=== PATIENT | female | born 1995 | race Caucasian/White ===

== ENCOUNTER → 2019-03-11 11:15 | Outpatient (CLI) | payer OTHER, SELFPAY ==
--- NOTE | 2019-03-11 | DI.US.S_ITS ---
PROCEDURE: US PELVIC COMPLETE INDICATIONS: PT SPOTTING TECHNIQUE: Real-time scanning was performed of the pelvic organs, with image documentation. Additional endovaginal scanning was necessary due to incomplete visualization of the adnexal and endometrial structures by transabdominal scanning. COMPARISON: None. FINDINGS: Transabdominal scanning: Limited scanning through the kidneys shows no hydronephrosis. No pathologic free abdominal or pelvic fluid. Endovaginal scanning: Uterus: Uterus is normal in size at 3.4 x 4.9 x 6.8 cm, anteverted. The endometrium measures 4.2 mm in combined thickness. There is a suspected isoechoic uterine fibroid measuring 2.2 x 1.5 cm at the anterior myometrium adjacent to the fundal portion of endometrial canal. Ovaries: The right ovary measures 1.6 x 1.7 x 2.9 cm and the left measures 1.5 x 1.2 x 2.9 cm. IMPRESSION: No endometrial mass, normal appearing ovaries. Suspect uterine fibroid at the anterior fundal portion of the myometrium, isoechoic, measuring up to 2.2 cm. Dictated by: Sim Shore M.D. on 03/11/2019 at 12:38 Approved by: Sim Shore M.D. on 03/11/2019 at 12:41
== END ==
PROVIDERS: PCP Nurse Practitioner Family; Visit Provider Nurse Practitioner Family
DX: N92.6 Irregular menstruation, unspecified (principal)
CPT/HCPCS: 76830; 76856

== ENCOUNTER 2019-07-29 17:44 | Emergency (ER) | payer OTHER, SELFPAY ==
[2019-07-29 17:49] VITALS: BP 152/96; PULSE 99; RESP 18; TEMP 36.9; O2SAT 99
--- NOTE | 2019-07-29 18:29 | DI.CT.S_ITS ---
PROCEDURE: CT KIDNEY URETER BLADDER (KUB) INDICATIONS: right flank pain TECHNIQUE: Noncontrast 5 mm thick sections acquired from the diaphragms to the symphysis. 5 mm thick coronal and sagittal reformats were then performed. For radiation dose reduction, the following was used: automated exposure control, adjustment of mA and/or kV according to patient size. COMPARISON: None. FINDINGS: Image quality: Excellent. Lung bases: Lung bases are clear. Heart size is normal. Urinary system: Both kidneys are normal in size. Punctate nonobstructing right upper pole intrarenal calcification. No left intrarenal calculi.. No hydronephrosis or perinephric fat stranding. Both ureters appear non-dilated throughout their expected courses. Bladder wall thickness is normal; no calcified bladder stones. Other solid organs: Liver is normal in size. Gallbladder is decompressed. Pancreas is normal in contours. Spleen is normal in size. No adrenal nodules. Peritoneum and bowel: Mildly increased quantity of proximal colonic and transverse colonic stool. Unenhanced bowel loops demonstrate normal wall thickness and caliber. No free fluid or air. Portions of an air-filled appendix are visible. Nodes and vessels: No retroperitoneal or mesenteric adenopathy by size criteria. Aorta and inferior vena cava are normal in caliber. Abdominal wall: No ventral hernias. Pelvis: No free pelvic fluid. No inguinal hernias or adenopathy. Bones: No suspicious bony lesions. No vertebral body compression fractures. IMPRESSION: 1. No CT evidence of obstructive uropathy. 2. Punctate, nonobstructing right upper pole intrarenal calcification, uncertain clinical significance of this small caliber. 3. Mildly increased quantity of retained stool. Dictated by: Pam Archer M.D. on 07/29/2019 at 20:23 Approved by: Pam Archer M.D. on 07/29/2019 at 20:30
--- NOTE | 2019-07-29 18:31 | ED.BACK ---
HPI - Back Pain/Injury General Chief Complaint: Back Pain/Injury Stated Complaint: BACK AND SIDE PAIN Time Seen by Provider: 07/29/19 18:18 Source: patient and old records reviewed Mode of arrival: Ambulatory Limitations: no limitations History of Present Illness HPI Narrative: Patient is a 23 year old female who presents with 3 days of right flank pain. She was diagnosed with a kidney infection on 07/27/19 by PCP and placed on Bactrium. She states she denies any dysuria, injury, fever, nausea or vomiting. She states pain is worsening, now spreading to the left flank and sometimes around to the stomach, but not persistent abdominal pain. She last took ibuprofen yesterday 400mg but says it doesn't last long and pain is worse after she takes it. Related Data Home Medications Medication Instructions Recorded Confirmed levonorgestrel 0.15 mg-ethinyl 1 tab PO DAILY 03/25/19 03/25/19 estradiol 30 mcg tablets,3 mos pack(91) Allergies Allergy/AdvReac Type Severity Reaction Status Date / Time clindamycin Allergy Severe hives Verified 07/29/19 17:54 Penicillins Allergy Hives Verified 07/29/19 17:54 Review of Systems Review of Systems ROS Unobtainable: All systems reviewed & are unremarkable except as noted in HPI and below Constitutional Constitutional: Denies chills, Denies fever(s), Denies lethargy and Denies weakness Eyes Eyes: Denies change in vision, Denies eye discharge, Denies irritation and Denies loss of vision Cardiovascular Cardiovascular: Denies chest pain, Denies irregular heart rhythm, Denies lightheadedness, Denies palpitations, Denies dyspnea, Denies dyspnea on exertion and Denies orthopnea Respiratory Respiratory: Denies cough, Denies dyspnea, Denies dyspnea on exertion and Denies wheezing Gastrointestinal Gastrointestinal: Reports as per HPI, Reports abdominal pain (off and on), Denies diarrhea, Denies nausea and Denies vomiting Genitourinary Genitourinary: Reports as per HPI and Reports flank pain Musculoskeletal Musculoskeletal: Denies back pain, Denies muscle weakness, Denies numbness and Denies tingling Integumentary/Breasts Skin/Breast: Denies pruritus, Denies erythema, Denies rash and Denies wounds Neurologic Neurologic: Denies loss of vision, Denies numbness, Denies tingling and Denies weakness Endocrine Endocrine: Denies palpitations Allergic/Immunologic Allergic/Immunologic: Denies wheezing Patient History Medical History Patient denies medical problems (Acute) Social History Smoking Status: Never smoker alcohol intake frequency: a few times a week Alcohol type: hard liquor Substance Use Type: marijuana Exam Initial Vital Signs Initial Vital Signs: Vital Signs Temperature 98.5 F 07/29/19 17:49 Pulse Rate 99 H 07/29/19 17:49 Respiratory Rate 18 07/29/19 17:49 Blood Pressure 152/96 H 07/29/19 17:49 Pulse Oximetry 99 07/29/19 17:49 Const General: cooperative and well developed Nutritional Appearance: well nourished Orientation: alert, awake, oriented x3 and not confused GI Inspection: normal to inspection Palpation: soft, No firm, No guarding and No tender General: CVA tenderness (right) Skin General: no rashes or lesions noted, No jaundice and No petechiae Neuro General: alert, oriented x3, gait normal and no focal motor deficits Speech: speech normal Course Orders Ordered: ED Orders 07/29/19 18:29 CT kidney ureter bladder (KUB) Stat 07/29/19 18:55 Complete Blood Count AUTO DIFF Stat Comprehensive Metabolic Panel Stat Lipase Stat 07/29/19 18:56 Urine Culture Stat Urine Microscopic Stat Discontinued Medications Ketorolac Tromethamine (Toradol) 30 mg IV NOW ONE Stop: 07/29/19 18:30 Last Admin: 07/29/19 19:06 Dose: 30 mg Documented by: MEISENB Trimethoprim/Sulfamethoxazole (Bactrim Ds Prepack) 1 bottle MISC SEEINSTR ONE Stop: 07/29/19 20:45 Last Admin: 07/29/19 20:49 Dose: 1 bottle Documented by: [email or web address] Vital Signs Vital signs: Vital Signs - 8 hr 07/29/19 19:48 Pulse Rate 79 Respiratory Rate 16 Blood Pressure [Right Arm] 121/85 Pulse Oximetry 99 MDM - Back Pain/Injury Lab Data Attestation: I reviewed the patient's lab results. Result diagrams: 07/29/19 18:55 07/29/19 18:55 Labs: Lab Results 07/29/19 07/29/19 07/29/19 Range/Units 18:55 18:55 18:56 WBC 13.4 H (4.5-11.0) X10^3/uL RBC 4.76 (4.0-5.2) X10^6/uL Hgb 14.1 (12.0-16.0) g/dL Hct 41.5 (36-46) % MCV 87.4 (80-100) fL MCH 29.7 (26-34) PG MCHC 34.0 (30-36) % RDW 12.7 (11.6-14.8) % Plt Count 417 H (150-400) X10^3/uL Neut % (Auto) 66.7 (50-75) % Lymph % (Auto) 21.9 L (25-40) % [place] % (Auto) 6.4 (3-14) % Eos % (Auto) 4.7 H (2-4) % Baso % (Auto) 0.3 (0-2) % Neut # (Auto) 9000 H (8395-4517) /uL Lymph # (Auto) 2900 (7449-7286) /uL [place] # (Auto) 900 (0-900) /uL Eos # (Auto) 600 H (0-450) /uL Baso # (Auto) 0 (0-100) /uL Sodium 139 (137-145) mmol/L Potassium 3.9 (3.4-5.1) mmol/L Chloride 101 (98-107) mmol/L Carbon Dioxide 25 (22-32) mmol/L BUN 9 (7-17) mg/dL Creatinine 0.70 (0.52-1.04) mg/dL Estimated GFR > 60.0 (>60) mL/min BUN/Creatinine Ratio 12.9 (6-22) Glucose 95 (70-100) mg/dL Calcium 9.6 (8.4-10.2) mg/dL Total Bilirubin 0.3 (0.2-1.3) mg/dL AST 22 (14-36) IU/L ALT < 6 L (9-52) IU/L Alkaline Phosphatase 71 (38-126) U/L Total Protein 8.6 H (6.3-8.2) g/dL Albumin 5.0 (3.5-5.0) g/dL Globulin 3.6 (1.7-4.1) g/dL Albumin/Globulin Ratio 1.4 (1.0-2.8) Lipase 88 (23-300) U/L Urine RBC None seen (0-5/HPF) Urine WBC 1-5/hpf (0-5/HPF) Ur Squamous Epith Cells 1-5 /hpf (0-5/HPF) Urine Bacteria Many (>30) H (None) Urine Mucus 1+ H (Negative) Ur Culture Indicated? Specimen cultured Point of Care Testing Test Results Negative Urine Dip Bedside Urine Glucose Negative Bedside Urine Bilirubin - Negative Bedside Urine Ketone - Negative Urine Specific [place] 1.015 Bedside Urine Occult Blood - Negative Bedside Urine pH 6.0 Bedside Urine Protein - Negative Bedside Urine Urobilinogen - Negative Bedside Urine Nitrite - Negative Bedside Urine Leukocytes +/- [address] scan - abdomen: Radiologist's impression: PROCEDURE: CT KIDNEY URETER BLADDER (KUB) INDICATIONS: right flank pain TECHNIQUE: Noncontrast 5 mm thick sections acquired from the diaphragms to the symphysis. 5 mm thick coronal and sagittal reformats were then performed. For radiation dose reduction, the following was used: automated exposure control, adjustment of mA and/or kV according to patient size. COMPARISON: None. FINDINGS: Image quality: Excellent. Lung bases: Lung bases are clear. Heart size is normal. Urinary system: Both kidneys are normal in size. Punctate nonobstructing right upper pole intrarenal calcification. No left intrarenal calculi.. No hydronephrosis or perinephric fat stranding. Both ureters appear non-dilated throughout their expected courses. Bladder wall thickness is normal; no calcified bladder stones. Other solid organs: Liver is normal in size. Gallbladder is decompressed. Pancreas is normal in contours. Spleen is normal in size. No adrenal nodules. Peritoneum and bowel: Mildly increased quantity of proximal colonic and transverse colonic stool. Unenhanced bowel loops demonstrate normal wall thickness and caliber. No free fluid or air. Portions of an air-filled appendix are visible. Nodes and vessels: No retroperitoneal or mesenteric adenopathy by size criteria. Aorta and inferior vena cava are normal in caliber. Abdominal wall: No ventral hernias. Pelvis: No free pelvic fluid. No inguinal hernias or adenopathy. Bones: No suspicious bony lesions. No vertebral body compression fractures. IMPRESSION: 1. No CT evidence of obstructive uropathy. 2. Punctate, nonobstructing right upper pole intrarenal calcification, uncertain clinical significance of this small caliber. 3. Mildly increased quantity of retained stool. Dictated by: Pam Archer M.D. on 07/29/2019 at 20:23 MDM Narrative Medical decision making narrative: The patient's blood work does show leukocytosis. She is afebrile CT does not show any kidney stone. This it may be musculoskeletal. Patient denies any injury. Urine is clean but she is already taking Bactrim. Urine from previously actually did not show any growth. However at this time I recommend that she continue and finish her antibiotics. She overall is feeling much better after Toradol. All recommend ibuprofen for pain control at home. Discharge Plan Departure Patient Disposition: Home Clinical Impression: UTI (urinary tract infection) Qualifiers: Urinary tract infection type: acute pyelonephritis Qualified Code(s): N10 - Acute pyelonephritis Discharge Date/Time: 07/29/19 21:10 Instructions: Kidney Infection, DI for Back Strain or Sprain Activity Restrictions/Additional Instructions: *You have been diagnosed with kidney infection *What to do: Blood work and CT scan today overall are reassuring. Possible musculoskeletal versus infection. At this time I recommend that he finish her antibiotics. *Continue to take medications as directed Ibuprofen 600 mg every 6 hours only if needed for pain *Follow up with your primary care provider in 2-3 days *Return to ER if you should have increasing pain fevers persistent vomiting or any new, worsening or concerning symptoms Prescriptions: No Action levonorgestrel-ethinyl estrad 0.15 mg-30 mcg (91) tablets,dose pack,3 month 1 tab PO DAILY RF: 0 Referrals: Jen Jara ARNP [Primary Care Provider] -
--- NOTE | 2019-07-29 19:01 | PC.NURSE ---
pt reports, right flank pain saturday, then today bilateral lower abdomin radiating to anterior abdomin. denies fever,nausea or vomiting, denies vaginal dc. treated for uti on bactrim since saturday.
[2019-07-29 19:05] LABS: Add Manual Diff / Slide Review NO; Basophils Absolute Auto 0 /uL (0-100); Basophils Percent Auto 0.3 % (0-2); Eosinophils Absolute Auto 600 /uL (0-450); Eosinophils Percent Auto 4.7 % (2-4); Hematocrit 41.5 % (36-46); Hemoglobin 14.1 g/dL (12.0-16.0); Lymphocytes Absolute Auto 2900 /uL (1100-4500); Lymphocytes Percent Auto 21.9 % (25-40); Mean Corpuscular Hemoglobin 29.7 PG (26-34); Mean Corpuscular Volume 87.4 fL (80-100); Monocytes Absolute Auto 900 /uL (0-900); Monocytes Percent Auto 6.4 % (3-14); Neutrophils Absolute Auto 9000 /uL (1500-7000); Neutrophils Percent Auto 66.7 % (50-75); Platelet Count 417 X10^3/uL (150-400); Red Blood Cell Count 4.76 X10^6/uL (4.0-5.2); Red Cell Distribution Width 12.7 % (11.6-14.8); White Blood Cell Count 13.4 X10^3/uL (4.5-11.0)
[2019-07-29] MEDS: KETOROLAC 60 MG/2 ML VIAL 30 MG IV (19:06)
[2019-07-29 19:17] LABS: Albumin Globulin Ratio 1.4 (1.0-2.8); Alkaline Phosphatase 71 U/L (38-126); Aspartate Aminotransferase 22 IU/L (14-36); BUN Creatinine Ratio 12.9 (6-22); Bilirubin Total 0.3 mg/dL (0.2-1.3); Blood Urea Nitrogen 9 mg/dL (7-17); Calcium 9.6 mg/dL (8.4-10.2); Carbon Dioxide 25 mmol/L (22-32); Chloride 101 mmol/L (98-107); Estimated Glomerular Filt Rate > 60.0 mL/min (>60); Globulin 3.6 g/dL (1.7-4.1); Glucose 95 mg/dL (70-100); HEMOLYSIS < 15 (0-50); Lipase 88 U/L (23-300); Potassium 3.9 mmol/L (3.4-5.1); Sodium 139 mmol/L (137-145); Total Protein 8.6 g/dL (6.3-8.2)
[2019-07-29 19:24] LABS: Alanine Aminotransferase < 6 IU/L (9-52)
[2019-07-29 19:48] VITALS: BP 121/85; PULSE 79; RESP 16; O2SAT 99
[2019-07-29] MEDS: TRIMETH/SULFA 160/800 PREPACK 1 BOTTLE MISC (20:49)
[2019-07-29 21:26] LABS: RBC Urine None Seen (0-5/HPF)
[2019-07-29 21:30] LABS: Bacteria Urine Many (>30); Squamous Epithelial Cell Urine 1-5 /HPF (0-5/HPF); WBC Urine 1-5/HPF (0-5/HPF)
[2019-07-29 21:31] LABS: Culture Indicated Urine Specimen Cultured; Mucus Urine 1+ (Negative)
== END 2019-07-29 21:10 | disposition home or self-care (01) ==
PROVIDERS: Emergency Provider Emergency Medicine; PCP Nurse Practitioner Family
DX: N10 Acute pyelonephritis (principal)
CPT/HCPCS: 36415; 74176; 80053; 81003; 81015; 81025; 83690; 85025; 87086; 96374; 99283; 99284; J1885

== ENCOUNTER → 2020-04-17 10:32 | Outpatient (CLI) | payer OTHER, SELFPAY ==
[2020-04-20 12:12] LABS: COVID19 Sendout Not Detected (Not Detected)
== END ==
PROVIDERS: PCP Nurse Practitioner Family; Visit Provider Physician Assistant
DX: Z03.818 Encounter for observation for suspected exposure to other biological agents ruled out (principal)
CPT/HCPCS: 87635

== ENCOUNTER → 2021-09-08 10:59 | Outpatient (ROUT) | payer OTHER, SELFPAY | PROVIDERS: Visit Provider Nurse Practitioner Obstetrics & Gynecology | DX: Z3A.36 36 weeks gestation of pregnancy; Z36.85 Encounter for antenatal screening for Streptococcus B | CPT/HCPCS: 87081 ==

== ENCOUNTER 2021-10-12 10:23 | Observation (INO) | payer OTHER, SELFPAY ==
--- NOTE | 2021-10-12 10:50 | DI.US.S_ITS ---
PROCEDURE: US OB BIOPHYSICAL PROFILE INDICATIONS: LOW NATE OUTSIDE/PRIOR DATING DATA: Last menstrual period (LMP): 12/29/2020. LMP-based estimated date of delivery (CINDY): 10/05/2021. First dating scan (date and location): None available. TECHNIQUE: Real-time scanning was performed of the fetus, with image documentation and biometric measurements. Biophysical profile was also obtained. Endovaginal scanning: Not performed COMPARISON: None. FINDINGS: General: A single living intrauterine gestation is present. Presentation: Vertex. Placenta: Placental position is fundal, without previa. Amniotic fluid index: 5.0 cm, normal range is 5-24 cm. heart rate: 147 beats per minute. Biophysical profile: Tone: 2 points. Movement: 2 points. Respiration: 2 points. Largest pocket of fluid: 2 points. IMPRESSION: Single live intrauterine consistent with a 41 week 0 day gestation by dates NATE lower limits of normal 5.0 cm Biophysical profile score 8 out of 8 Approved by: Charly Gimenez M.D. on 10/12/2021 at 10:46
--- NOTE | 2021-10-12 11:35 | PM.OBTRLD ---
Visit Information Visit Information Date of evaluation: 10/12/21 Primary OB Provider: Matilde Garcia On-call OB Provider: Matilde Garcia Reason for Evaluation: Yes other Comments/Additional reasons for admission: 26 YO @ 41wks by LMP and 8wk US presents for evaluation of low NATE in clinic during routine post dates testing. +FM and mild, irregular contractions. No VB or LOF. Does not want an induction of labor and has declined to schedule a post date IOL until 10/19/21 @ 42wks EGA. Uncomplicated PN care w/ CNM. Vital Signs Vital Signs: BP 125/77, HR 84bpm, T 36.1C Temporal PFSH Medical History Encounter for other general counseling and advice on contraception History of thyroiditis Patient denies medical problems Screening for cervical cancer Social History Smoking Status: Never smoker Review of Systems Review of Systems ROS: Yes unobtainable due to mental condition Exam Vital Signs (past 8 hours): see above Presentation: vertex Other: CE: 4/70/-3, medium, posterior Mcgill: 6 Objective Imaging BPP: My impression: Reported 05/14 NATE 5cm, MVP-3.71cm Evaluation Evaluation Baseline heart rate: 140 Variability: Moderate (11-25) monitor accelerations: Absent Monitor Decelerations: Absent Contraction Frequency (minutes): 6 Uterine Contraction Intensity: Mild Category of Tracing: Non-reactive (BPP 8/8) Diagnosis, Plan/Disposition Final Diagnosis (1) Post-dates : Status: Acute Plan/Disposition Plan: Recommend repeat NST, NATE in 2 days w/ recommendation fro IOL at any time. Pt continues to decline IOL, but agrees to continued testing. Encouraged hydration and ambulation w/ contractions. RTC in 2 days, 10/14/21 @ 0930. OB Disposition: home
== END 2021-10-12 11:47 | disposition home or self-care (01) ==
PROVIDERS: Admitting Provider Nurse Practitioner Obstetrics & Gynecology; Referring Provider Nurse Practitioner Obstetrics & Gynecology; Visit Provider Nurse Practitioner Obstetrics & Gynecology
DX: O48.0 Post-term pregnancy (principal); O36.5930 Maternal care for other known or suspected poor fetal growth, third trimester, not applicable or unspecified; O41.03X0 Oligohydramnios, third trimester, not applicable or unspecified; Z3A.41 41 weeks gestation of pregnancy
CPT/HCPCS: 59025; 76819; G0378; G0379

== ENCOUNTER 2021-10-13 17:10 | Observation (INO) | payer OTHER, SELFPAY ==
--- NOTE | 2021-10-13 17:21 | PM.OBTRLD ---
Visit Information Visit Information Date of evaluation: 10/13/21 Primary OB Provider: Matilde Garcia On-call OB Provider: Matilde Garcia Reason for Evaluation: Yes rule out labor Comments/Additional reasons for admission: 26YO @ 22wgd3o here for evaluation of labor. Had strong contractions all night that eased in the morning and are now starting to feel stronger again. Has noticed scant spotting when wiping all day today. Lots of FM. No LOF. Uncomplicated PN care w/ CNM. Has post dates IOL scheduled for 42wks. Vital Signs Vital Signs: BP 111/78, HR 101bpm, T 36.9C Temporal PFSH Medical History Encounter for other general counseling and advice on contraception History of thyroiditis Patient denies medical problems Screening for cervical cancer Social History Smoking Status: Never smoker Review of Systems Review of Systems ROS: Yes All systems reviewed with the patient and are negative except as otherwise documented Exam Vital Signs (past 8 hours): see above Presentation: vertex Objective Imaging BPP: My impression: BPP 8/8, NATE 5.3cm, per US tech Evaluation Evaluation Baseline heart rate: 145 Variability: Average (6-10) monitor accelerations: Present Monitor Decelerations: Late (single) Contraction Frequency (minutes): 4 Category of Tracing: Non-reactive Cervical dilation (cm): 4 Cervical effacement (%): 80 station: -2 Comments: Initially nonreactive->BPP ordered-> BPP 8/8. Ctx are irregular. Diagnosis, Plan/Disposition Final Diagnosis (1) False labor after 37 completed weeks of gestation: Status: Acute Plan/Disposition Plan: Discharge to home after 1L IVFB. F/U in 2 days scheduled. OB Disposition: home
--- NOTE | 2021-10-13 17:44 | DI.US.S_ITS ---
PROCEDURE: US OB BIOPHYSICAL PROFILE INDICATIONS: non reactive [employer] OUTSIDE/PRIOR DATING DATA: Last menstrual period (LMP): 12/29/2020. LMP-based estimated date of delivery (CINDY): 10/05/2021. First dating scan (date and location): None available. Estimated date of delivery (CINDY) from first dating scan: N/A The calculations are made using the clinical CINDY of 10/05/2021. TECHNIQUE: Real-time scanning was performed of the fetus for biophysical profile, with image documentation. Color and pulse Doppler interrogation was also performed of the umbilical artery near its insertion into the placenta. Endovaginal scanning: Not performed COMPARISON: [facility], , OB BIOPHYSICAL PROFILE, 10/12/2021, 11:07. FINDINGS: General: A single living intrauterine gestation is present. Presentation: Cephalic. Placenta: Placental position is fundal and posterior , without previa. Amniotic fluid index: 5.3 cm, normal range is 5-24 cm. Single deepest vertical pocket is 2.74 cm. heart rate: 137 beats per minute. Maternal cervical canal: Not seen at late stage of Clinically estimated gestational age: Post-dates Estimated gestational age from initial scan: 41 weeks Biophysical profile: Tone: 2 points. Movement: 2 points. Respiration: 2 points. Largest pocket of fluid: 2 points. IMPRESSION: Normal ultrasound biophysical profile equals 8/8. Post-dates We strive to produce accurate, complete, and clear reports of imaging services. To assist us in improving patient care, this report was composed using standard report templates and voice recognition software. Therefore, it may contain abnormal punctuation, insertions and/or omissions. Occasional wrong-word or sound-alike substitutions may occur. Though we review the report and make efforts to correct it, we do recommend that the report be read carefully in proper context to recognize any text inaccuracies. Dictated by: Darrel Wilkinson M.D. on 10/13/2021 at 18:24 Approved by: Darrel Wilkinson M.D. on 10/13/2021 at 18:28
[2021-10-13] MEDS: LACTATED RINGERS 1,000 ML 1000 ML IV (18:57)
== END 2021-10-13 19:34 | disposition home or self-care (01) ==
LOC: LABOR 17:11
PROVIDERS: Admitting Provider Nurse Practitioner Obstetrics & Gynecology; Referring Provider Nurse Practitioner Obstetrics & Gynecology; Visit Provider Nurse Practitioner Obstetrics & Gynecology
DX: O47.1 False labor at or after 37 completed weeks of gestation (principal); O48.0 Post-term pregnancy; Z3A.41 41 weeks gestation of pregnancy
CPT/HCPCS: 59050; 76819; 96360; G0378; G0379

== ENCOUNTER 2021-10-14 05:34 | Inpatient (IN) | payer OTHER, SELFPAY ==
--- NOTE | 2021-10-14 05:54 | PM.OBHP.1 ---
OB HPI Date/Time Date of admission: 10/14/21 Date Patient Seen: 10/14/21 Time Patient Seen: 05:54 History of Present Condition Chief complaint: contractions : 1 Para: 0 Estimated Date of Delivery: 10/05/21 Estimated Gestational Age (weeks): 41.2 Narrative: Juany Loaiza is a 26 year old female @ 41wks 2 days by LMP and early US who presents for evaluation of labor. Has been radha all night. Contractions have slowly progressed in frequency and intensity. now breathing through strong contractions every 4-5 minutes. Lots of FM. No VB or LOF. Uncomplicated PN care w/ CNM. Post dates testing revealed NATE 5.0cm on 10/12 and 5.3 on 10/13, BPP 05/14 both days. Desires low intervention , considering epidural. History of Present care: good care, initiated at week # (8), number of visits (12) and pounds weight gain (48) Dating criteria: LMP confirmed by 1st trimester US Ultrasounds: normal mid trimester US Obstetrical complications: none Medical complications: none Preadmission Labs Blood type: O (+) positive -: Antibody screen: negative, Cystic fibrosis screen: negative, GBS status: negative, HBsAG: negative, HIV: negative and RPR/VDLR: negative -: Chlamydia screen: not detected and Gonorrhea screen: not detected -: Rubella: immune and Varicella: immune HCT: 36.4 HCAB: negative PAP: Normal Cell-free DNA: Negative, female Narrative: 2hr gtt: 80, 132, 124 Evaluation Evaluation Baseline heart rate: 150 Variability: Average (6-10) monitor accelerations: Present Monitor Decelerations: Variable (rare) Contraction Frequency (minutes): 4 Uterine Contraction Intensity: Moderate Dilation (cm): 5 Effacement (%): 90 Dilation: >/=5 cm Effacement: >/=80% station: -2 Position of cervix: posterior Consistency: soft Mcgill score: 9 PFSH Medical History Encounter for other general counseling and advice on contraception History of thyroiditis Patient denies medical problems Screening for cervical cancer Social History Smoking Status: Never smoker Meds Home Medications and Allergies Home Medications Medication Instructions Recorded Confirmed Type lysine 1,000 mg tablet 1,000 mg PO DAILY 02/13/21 10/14/21 History omega-3 fatty acids 1,000 mg 1,000 mg PO DAILY 02/13/21 10/14/21 History capsule zinc 50 mg tablet 50 mg PO DAILY 02/13/21 10/14/21 History Allergies Allergy/AdvReac Type Severity Reaction Status Date / Time clindamycin Allergy Severe hives Verified 07/29/19 17:54 amoxicillin Allergy Unknown Unverified 02/13/21 15:43 Penicillins Allergy Hives Verified 07/29/19 17:54 Review of Systems Review of Systems ROS: Yes All systems reviewed with the patient and are negative except as otherwise documented OB Exam Resp Effort & Inspection: normal respiratory effort Auscultation: clear to auscultation bilaterally Cardio Rate: regular rate Rhythm: regular rhythm Heart Sounds: S1 normal and S2 normal Presentation: vertex Objective Labs Result Diagrams: 10/14/21 06:00 Assessment and Plan Assessment and Plan Assessment and Plan narrative: A: Term nullipara Active labor no indication for antibiotics Cat II FHR, overall reassuring P: Admit, routine orders. Labor support. Epidural if requested. Reassess in 4 hours or sooner, PRN. Time Spent with Patient Total time spent with greater than 50% in coordination of care (as documented) at patient's floor/unit and/or counseling patient:: 15-24 minutes
[2021-10-14 06:13] VITALS: BP 112/56
[2021-10-14 06:22] LABS: Add Manual Diff / Slide Review NO; Basophils Absolute Auto 100 /uL (0-100); Basophils Percent Auto 0.5 % (0-2); Eosinophils Absolute Auto 0 /uL (0-450); Eosinophils Percent Auto 0.2 % (2-4); Hemoglobin 12.8 g/dL (12.0-16.0); Lymphocytes Absolute Auto 1800 /uL (1100-4500); Lymphocytes Percent Auto 7.7 % (25-40); Mean Corpuscular HGB Conc 34.5 % (30-36); Mean Corpuscular Hemoglobin 30.6 PG (26-34); Mean Corpuscular Volume 88.5 fL (80-100); Monocytes Absolute Auto 1100 /uL (0-900); Monocytes Percent Auto 4.6 % (3-14); Neutrophils Absolute Auto 20000 /uL (1500-7000); Platelet Count 278 X10^3/uL (150-400); Red Blood Cell Count 4.18 X10^6/uL (4.0-5.2)
[2021-10-14] MEDS: LACTATED RINGERS 1,000 ML 100 ML IV ×3 (06:30→11:17)
[2021-10-14 06:32] LABS: COVID19 -Nasal RAPID Negative (Negative)
--- NOTE | 2021-10-14 08:00 | PM.OBPNLAB ---
Date/Time Date Patient Seen: 10/14/21 Time Patient Seen: 08:01 Pain Control Pain control: epidural Comments: Juany continues to feel back pain and pressure down low, in front, working w/ DWAYNE for relief. VS: Bp 117/61mmHg, HR 100bpm, T 36.9C Temporal Pelvic Exam Dilation (cm): 8 Effacement (%): 90 station: -2 Amniotic membrane status: Intact Comments: Iverson placed prior to exam, draining clear, yellow urine Contractions Contractions on admission: regular Monitor mode: External Pitocin rate (mU/min): 0 Contraction frequency (min): 3 Contraction pattern: Regular Contraction intensity: Strong/Firm Status status: Category l Heart Rate Baseline: 145 Monitor Accelerations: Present Monitor Decelerations: Absent Monitor Variability: Moderate Assessment and Plan Assessment: active labor Plan: continuous present management Comments: Anticipate NSVB. Reassess in 4 hours or sooner, PRN.
--- NOTE | 2021-10-14 12:19 | PM.OBPRVD ---
Labor & Delivery Delivery date: 10/14/21 Intrapartal Events: None Cervical ripening method: none Induction method: none Delivery monitor: external FHT and external uterine Route of delivery: Episiotomy description: None L&D Laceration Description: None Estimated blood loss (mL): 200 Anesthesia Type: Epidural Narrative: Juany labored well with mild pain relief from epidural. Began to feel increasing rectal pressure and spontaneous urge to push and was C/C/+2 @ 1127. Juany pushed well on her right side with minimal coaching and encouragement. NSVB of a vigorous baby girl in PHILIPP position over an intact vagina and perineum @ 1158. was placed on maternal abdomen for drying and skin to skin. Patient declined AMTSL. After cessation of pulsation, the cord was double clamped by CNTianna and cut by Juany. Gentle cord traction and single maternal push led to a spontaneous, Schultze delivery of an apparently intact placenta, membranes and 3VC. Fundus immediately firm and bleeding minimal. QBL 200mL. Both mother and baby stable and skin to skin as I left the room. [place] Baby 1: Infant gender: Female Presentation: vertex Position: Right Occiput Anterior Placenta delivery description: Spontaneous Cord Vessel Description: 3 Vessels score (1 min): 9 score (5 min): 9 weight: 2.907 kg Plan for aftercare: Routine care
[2021-10-15] MEDS: PRENATAL VIT,CALC/IRON/FOLIC 1 TABLET 1 TAB PO (08:55)
--- NOTE | 2021-10-15 10:12 | PM.OBDS.1 ---
Discharge Providers Provider Date of admission: 10/14/21 05:34 Discharge Date: 10/15/21 Consults: 10/15/21 12:16 Consult to Charging Board Operator Routine Comment: Discharge provider: Matilde Garcia CNM Summary Hospital Course Date Patient Seen: 10/15/21 Time Patient Seen: 10:13 Diagnoses: o80 Hospital Course: Juany is PPD1 s/p NSVB of a healthy baby girl @ 1158 yesterday. Juany is voiding, ambulating and independently, now without a nipple shield. Pain is minimal and she has declined pain medication. Vaginal bleeding is decreasing without clots. She is tolerating a general diet. her partner remains present and supportive. They are eager to be discharge to home to catch a [address]250 ferry back to [place]. Peripartum Data Delivery Method: Natural Vaginal Laceration Description: None complications: none [place] 1: Gender: Female Disposition of : home Discharge Diagnosis (1) Encounter for full-term uncomplicated delivery: Start Date: 10/14/21 Start Time: 11:58 Status: Acute Problem Details: routine course Status at Discharge Cognitive/behavioral status at discharge: oriented and calm Functional status at discharge: independent ambulation Overall status at discharge: patient is back to baseline Time Spent with Patient Time attestation: Total time spent providing and/or coordinating discharge services: Time spent: Less than 30 minutes Objective Labs Result Diagrams: 10/14/21 06:00 Exam Vital Signs (past 8 hours): BP 106/61mmHg, HR 88bpm, RR 17/min, T 97.7F Temporal, SpO2 98% Other: Fundus firm @ U-1, lochia scant, perineum intact Discharge Plan Discharge Plan Patient Disposition: Home Discharge orders & Medications Prescriptions: Continued omega-3 fatty acids 1,000 mg capsule 1,000 mg PO DAILY 0RF zinc 50 mg tablet 50 mg PO DAILY 0RF lysine 1,000 mg tablet 1,000 mg PO DAILY 0RF Follow up/Referrals: Matilde Garcia CNM [[employer] Department Supervisor] - (Follow-up by Telehealth 11/26/21 @ 11:30am Follow-up in office 11/24/21 @ 11:00am) Diet/Activity/Treatments Diet: Diet as Tolerated Activity: pelvic rest x 6 weeks Skin/Wound/Dressing Care Report to your healthcare provider any signs of infection, such as:: chills, fever, increased pain, unusual drainage and unusual redness Visit Report/Discharge Packet Instructions: Depression
[2021-10-15 10:23] VITALS: BP 106/61; PULSE 88; RESP 17; TEMP 36.5
== END 2021-10-15 12:30 | disposition home or self-care (01) | DRG 806 ==
PROVIDERS: Admitting Provider Nurse Practitioner Obstetrics & Gynecology; Referring Provider Nurse Practitioner Obstetrics & Gynecology; Visit Provider Nurse Practitioner Obstetrics & Gynecology
DX: O48.0 Post-term pregnancy (principal); O41.03X0 Oligohydramnios, third trimester, not applicable or unspecified; Z37.0 Single live birth; O47.1 False labor at or after 37 completed weeks of gestation; O36.5930 Maternal care for other known or suspected poor fetal growth, third trimester, not applicable or unspecified; Z3A.41 41 weeks gestation of pregnancy; Z20.822 Contact with and (suspected) exposure to COVID-19
CPT/HCPCS: 36415; 59025; 59050; 76819; 85025; 86850; 86900; 86901; 87635; 96360; C9803; G0378; G0379

== ENCOUNTER → 2021-10-30 10:56 | Outpatient (CLI) | payer OTHER, SELFPAY ==
[2021-10-30 19:07] LABS: COVID19 - ORCAS (NP or Nasal) Negative (Negative)
== END ==
PROVIDERS: Referring Provider Physician Assistant; Visit Provider Physician Assistant
DX: Z20.822 Contact with and (suspected) exposure to COVID-19 (principal)
CPT/HCPCS: U0003

== ENCOUNTER → 2021-11-06 09:35 | Outpatient (CLI) | payer OTHER, SELFPAY ==
[2021-11-06 22:24] LABS: COVID19 - ORCAS (NP or Nasal) POSITIVE (Negative)
== END ==
PROVIDERS: Visit Provider Physician Assistant
DX: U07.1 COVID-19 (principal); Z20.822 Contact with and (suspected) exposure to COVID-19
CPT/HCPCS: U0003

== ENCOUNTER → 2022-08-02 11:36 | Outpatient (CLI) | payer OTHER, SELFPAY ==
[2022-08-02 20:15] LABS: Estradiol, Total 71.7 pg/mL
== END ==
PROVIDERS: PCP Registered Nurse General Practice; Visit Provider Registered Nurse General Practice
DX: F53.0 Postpartum depression (principal)
CPT/HCPCS: 82670; 84144

== ENCOUNTER → 2022-11-22 14:34 | Outpatient (CLI) | payer OTHER, SELFPAY ==
[2022-11-22 19:08] LABS: Add Manual Diff / Slide Review NO; Basophils Absolute Auto 0 /uL (0-100); Basophils Percent Auto 0.4 % (0-2); Eosinophils Absolute Auto 200 /uL (0-450); Eosinophils Percent Auto 2.3 % (2-4); Hematocrit 36.2 % (36-46); Hemoglobin 12.4 g/dL (12.0-16.0); Lymphocytes Absolute Auto 3000 /uL (1100-4500); Lymphocytes Percent Auto 28.2 % (25-40); Mean Corpuscular HGB Conc 34.4 % (30-36); Mean Corpuscular Hemoglobin 29.6 PG (26-34); Mean Corpuscular Volume 86.1 fL (80-100); Monocytes Absolute Auto 700 /uL (0-900); Monocytes Percent Auto 6.5 % (3-14); Neutrophils Absolute Auto 6700 /uL (1500-7000); Neutrophils Percent Auto 62.6 % (50-75); Platelet Count 309 X10^3/uL (150-400); Red Blood Cell Count 4.21 X10^6/uL (4.0-5.2); Red Cell Distribution Width 13.4 % (11.6-14.8); White Blood Cell Count 10.7 X10^3/uL (4.5-11.0)
== END ==
PROVIDERS: PCP Physician Assistant Medical; Visit Provider Registered Nurse General Practice
DX: D64.9 Anemia, unspecified (principal)
CPT/HCPCS: 85025

== ENCOUNTER → 2022-12-26 13:11 | Outpatient (CLI) | payer OTHER, SELFPAY ==
[2022-12-26 19:13] LABS: Alanine Aminotransferase 10 IU/L (<35); Albumin 4.3 g/dL (3.5-5.0); Albumin Globulin Ratio 1.5 (1.0-2.8); Alkaline Phosphatase 82 U/L (38-126); Aspartate Aminotransferase 20 IU/L (14-36); BUN Creatinine Ratio 22.1 (6-22); Bilirubin Total 0.2 mg/dL (0.2-1.3); Blood Urea Nitrogen 15 mg/dL (7-17); Calcium 9.3 mg/dL (8.4-10.2); Carbon Dioxide 28 mmol/L (22-32); Chloride 102 mmol/L (98-107); Estimated Glomerular Filt Rate > 60 mL/min (>60); Globulin 2.8 g/dL (1.7-4.1); Glucose 108 mg/dL (70-100); HEMOLYSIS < 15 (0-50); Potassium 4.1 mmol/L (3.4-5.1); Sodium 138 mmol/L (137-145); Total Protein 7.1 g/dL (6.3-8.2)
[2022-12-26 19:40] LABS: TSH w/ Reflex to FT4 0.87 uIU/mL (0.47-4.68)
[2022-12-26 19:49] LABS: Ferritin 30 ng/mL (6-137)
[2022-12-26 20:10] LABS: Add Manual Diff / Slide Review NO; Basophils Absolute Auto 0 /uL (0-100); Basophils Percent Auto 0.3 % (0-2); Eosinophils Absolute Auto 200 /uL (0-450); Eosinophils Percent Auto 1.9 % (2-4); Hematocrit 37.8 % (36-46); Hemoglobin 12.5 g/dL (12.0-16.0); Lymphocytes Absolute Auto 2300 /uL (1100-4500); Lymphocytes Percent Auto 25.3 % (25-40); Mean Corpuscular HGB Conc 33.2 % (30-36); Mean Corpuscular Hemoglobin 29.1 PG (26-34); Mean Corpuscular Volume 87.8 fL (80-100); Monocytes Absolute Auto 700 /uL (0-900); Monocytes Percent Auto 7.8 % (3-14); Neutrophils Absolute Auto 5900 /uL (1500-7000); Neutrophils Percent Auto 64.7 % (50-75); Platelet Count 350 X10^3/uL (150-400); Red Cell Distribution Width 13.3 % (11.6-14.8); White Blood Cell Count 9.2 X10^3/uL (4.5-11.0)
== END ==
PROVIDERS: PCP Physician Assistant Medical; Visit Provider Physician Assistant
DX: R53.83 Other fatigue (principal); Z39.1 Encounter for care and examination of lactating mother; R63.4 Abnormal weight loss
CPT/HCPCS: 80053; 82728; 84443; 85025

== ENCOUNTER → 2023-02-05 14:41 | Outpatient (CLI) | payer OTHER, SELFPAY ==
[2023-02-05 19:44] LABS: Vitamin D 25 Hydroxy (D3) 32.3 ng/mL (30.0-100.0)
[2023-02-05 19:45] LABS: Free T4, Direct Thyroxine 1.12 ng/dL (0.78-2.19)
== END ==
PROVIDERS: PCP Physician Assistant Medical; Visit Provider Registered Nurse General Practice
DX: E07.9 Disorder of thyroid, unspecified (principal); O90.6 Postpartum mood disturbance; E55.9 Vitamin D deficiency, unspecified
CPT/HCPCS: 82306; 84439

== ENCOUNTER → 2023-04-02 14:31 | Outpatient (CLI) | payer OTHER, SELFPAY ==
[2023-04-02 20:24] LABS: Progesterone, Total 6.35 ng/mL
[2023-04-02 20:39] LABS: Estradiol, Total 68.4 pg/mL
== END ==
PROVIDERS: PCP Physician Assistant Medical; Visit Provider Registered Nurse General Practice
DX: R89.1 Abnormal level of hormones in specimens from other organs, systems and tissues (principal)
CPT/HCPCS: 82670; 84144

== ENCOUNTER → 2023-05-22 08:47 | Outpatient (CLI) | payer OTHER, SELFPAY ==
[2023-05-24 14:09] LABS: Fecal Immunochemical Test Negative (Negative)
== END ==
PROVIDERS: PCP Physician Assistant Medical; Visit Provider Physician Assistant
DX: R63.4 Abnormal weight loss (principal); Z86.2 Personal history of diseases of the blood and blood-forming organs and certain disorders involving the immune mechanism
CPT/HCPCS: 82274

== ENCOUNTER → 2023-05-24 14:21 | Outpatient (CLI) | payer OTHER, SELFPAY ==
[2023-05-24 14:53] LABS: Add Manual Diff / Slide Review NO; Basophils Absolute Auto 100 /uL (0-100); Basophils Percent Auto 0.8 % (0-2); Eosinophils Absolute Auto 200 /uL (0-450); Eosinophils Percent Auto 1.6 % (2-4); Hematocrit 38.8 % (36-46); Hemoglobin 12.9 g/dL (12.0-16.0); Lymphocytes Absolute Auto 3400 /uL (1100-4500); Lymphocytes Percent Auto 30.6 % (25-40); Mean Corpuscular HGB Conc 33.3 % (30-36); Mean Corpuscular Hemoglobin 28.8 PG (26-34); Mean Corpuscular Volume 86.3 fL (80-100); Monocytes Absolute Auto 600 /uL (0-900); Monocytes Percent Auto 5.2 % (3-14); Neutrophils Absolute Auto 6900 /uL (1500-7000); Neutrophils Percent Auto 61.8 % (50-75); Platelet Count 420 X10^3/uL (150-400); Red Blood Cell Count 4.49 X10^6/uL (4.0-5.2); Red Cell Distribution Width 13.7 % (11.6-14.8); White Blood Cell Count 11.2 X10^3/uL (4.5-11.0)
[2023-05-24 15:00] LABS: Hemoglobin A1C% w Est Avg Glu 4.9 % (4.0-6.0)
[2023-05-24 15:28] LABS: Alanine Aminotransferase 11 IU/L (<35); Albumin 4.7 g/dL (3.5-5.0); Albumin Globulin Ratio 1.6 (1.0-2.8); Alkaline Phosphatase 73 U/L (38-126); Aspartate Aminotransferase 23 IU/L (14-36); BUN Creatinine Ratio 23.8 (6-22); Bilirubin Total 0.3 mg/dL (0.2-1.3); Blood Urea Nitrogen 15 mg/dL (7-17); C-Reactive Protein Quant < 0.5 mg/dL (<1.0); Calcium 9.7 mg/dL (8.4-10.2); Carbon Dioxide 27 mmol/L (22-32); Chloride 103 mmol/L (98-107); Estimated Glomerular Filt Rate > 60 mL/min (>60); Globulin 2.9 g/dL (1.7-4.1); Glucose 87 mg/dL (70-100); HEMOLYSIS < 15 (0-50); Lipase 142 U/L (23-300); Sodium 138 mmol/L (137-145); Total Protein 7.6 g/dL (6.3-8.2)
[2023-05-24 15:37] LABS: Erythrocyte Sedimentation Rate 3 MM/HR (0-20)
[2023-05-24 15:41] LABS: Free T3, Triiodothyronine Free 2.72 pg/mL (2.77-5.27)
[2023-05-24 15:55] LABS: TSH w/ Reflex to FT4 1.92 uIU/mL (0.47-4.68)
[2023-05-26 12:39] LABS: Anti Thyroglobulin Antibody <1.0 IU/mL (0.0-0.9); Thyroid Peroxidase Antibodies <9 IU/mL (0-34)
[2023-05-27 09:15] LABS: HIV 1 & 2 Ab/Ag 4th Gen Combo NEGATIVE (NEGATIVE); Hep C Virus Ab w/Reflex Quant NEGATIVE s/c (NEGATIVE)
[2023-06-26 13:29] LABS: Triiodothyronine T3 Reverse 11.9
== END ==
PROVIDERS: PCP Physician Assistant Medical; Referring Provider Physician Assistant; Visit Provider Physician Assistant
DX: R11.0 Nausea (principal); R63.4 Abnormal weight loss; Z39.1 Encounter for care and examination of lactating mother; Z86.2 Personal history of diseases of the blood and blood-forming organs and certain disorders involving the immune mechanism
CPT/HCPCS: 36415; 80053; 83036; 83690; 84443; 84481; 84482; 85025; 85651; 86140; 86376; 86800; 86803; 87389